=== PATIENT | male | born 1945 | race Caucasian/White ===

== ENCOUNTER 2018-11-06 11:15 | Day surgery (SDC) | payer OTHER | END 2018-11-06 15:25 | disposition home or self-care (01) | LOC: AMB-ENDOS 11:15 | DX: C20 Malignant neoplasm of rectum (principal) ==

== ENCOUNTER 2019-06-20 06:47 | Day surgery (SDC) | payer OTHER | END 2019-06-20 13:15 | disposition home or self-care (01) | LOC: AMB-ENDOS 06:47 | DX: K62.89 Other specified diseases of anus and rectum (principal); K57.30 Diverticulosis of large intestine without perforation or abscess without bleeding; K64.1 Second degree hemorrhoids ==